=== PATIENT | female | born 1975 | race Caucasian/White ===

== ENCOUNTER 2019-11-24 13:11 | Emergency (ER) | payer OTHER ==
[~2019-11-24] VITALS: Ht 165.1 cm; Wt 97.5 kg
[~2019-11-24 13:11] MED LIST: CIPROFLOXACIN500 M1 PO; DOXYCYCLINE 10100 M1 PO; FLOMAX PO; GLUCOPHAGE500 MG PO; NOHOMEMEDICATIONS; NORCO 5-325 TA1 EACH PO; PERCOCET 5-3251 EACH PO; PROTONIX40 M2 PO
[2019-11-24 14:09] LABS: ABSOLUTE BASOPHILS 0.1 thou/uL (0.0-0.2); ABSOLUTE EOSINOPHILS 0.3 thou/uL (0.0-0.7); ABSOLUTE LYMPHOCYTES 1.7 thou/uL (0.8-5.3); ABSOLUTE MONOCYTES 0.6 thou/uL (0.0-1.2); ABSOLUTE NEUTROPHILS 6.8 thou/uL (1.6-8.1); BASOPHILS 0.7 %; EOSINOPHILS 3.4 %; HEMATOCRIT 45.5 % (37.0-47.0); LYMPHOCYTES 17.7 %; MCHC 35.2 g/dL (28.0-37.0); MCV 88.2 fL (80.0-100.0); MONOCYTES 6.3 %; MPV 9.2 fl. (7.2-11.1); NUCLEATED RBCS 0 /100WBC; PLATELET COUNT* 217 thou/uL (150-400); POLYS 71.9 %; RBC 5.16 mil/uL (4.20-5.00); RDW-CV 13.9 % (10.5-14.5); WBC 9.4 thou/uL (4.0-11.0)
[2019-11-24 14:18] LABS: CALCIUM 8.5 mg/dL (8.5-10.1); CREATININE 0.8 mg/dL (0.6-1.3)
[2019-11-24 14:23] LABS: ALBUMIN 3.2 g/dL (3.4-5.0); TOTAL BILIRUBIN 0.4 mg/dL (<0.1-1.0); TOTAL PROTEIN 7.3 g/dL (6.4-8.2)
[2019-11-24 14:56] LABS: URINE BILIRUBIN NEGATIVE (Negative); URINE BLOOD NEGATIVE (Negative); URINE CLARITY CLEAR; URINE COLOR YELLOW; URINE GLUCOSE-RANDOM 3+ (Negative); URINE KETONES NEGATIVE (Negative); URINE LEUKOCYTES-REFLEX NEGATIVE (Negative); URINE NITRITE-REFLEX NEGATIVE (Negative); URINE PROTEIN NEGATIVE (Negative); URINE SPECIFIC GRAVITY <= 1.005 (1.005-1.030); URINE UROBILINOGEN 0.2 E.U./dl (0.2-1.0)
[2019-11-24] MEDS ORDERED: KEFLEX500 M1 PO (15:27)
[2019-11-24 15:50] VITALS: BP 162/96
[2019-11-24 16:17] LABS: INFLUENZA A ANTIGEN Negative (Negative); INFLUENZA B ANTIGEN Negative (Negative)
== END 2019-11-24 15:50 | disposition home or self-care (01) ==
LOC: M.ERS 13:11
PROVIDERS: Physician Assistant
DX: R22.1 Localized swelling, mass and lump, neck (principal); E11.9 Type 2 diabetes mellitus without complications; Z90.49 Acquired absence of other specified parts of digestive tract; Z90.89 Acquired absence of other organs; Z98.890 Other specified postprocedural states

== ENCOUNTER 2020-03-25 15:22 | Emergency (ER) | payer OTHER ==
[~2020-03-25] VITALS: Ht 165.1 cm; Wt 97.5 kg
[~2020-03-25 15:22] MED LIST changes: +KEFLEX500 M1 PO
[2020-03-25] MEDS ORDERED: ZANAFLEX4 MG PO (18:43)
[2020-03-25] MEDS ORDERED: NABUMETONE 750750 M1 PO (18:43)
[2020-03-25] MEDS ORDERED: NORCO 5-325 TA1 EAC1 PO (18:43)
[2020-03-25 18:54] VITALS: BP 135/88
== END 2020-03-25 18:56 | disposition home or self-care (01) ==
LOC: M.ERS 15:22
DX: S16.1XXA Strain of muscle, fascia and tendon at neck level, initial encounter (principal); E11.9 Type 2 diabetes mellitus without complications; K58.9 Irritable bowel syndrome, unspecified; Z98.890 Other specified postprocedural states; Z90.49 Acquired absence of other specified parts of digestive tract; X58.XXXA Exposure to other specified factors, initial encounter; Y93.89 Activity, other specified; Y92.89 Other specified places as the place of occurrence of the external cause; Y99.8 Other external cause status

== ENCOUNTER 2020-12-12 12:22 | Emergency (ER) | payer OTHER ==
[~2020-12-12] VITALS: Ht 167.6 cm; Wt 102.1 kg
[~2020-12-12 12:22] MED LIST changes: +NABUMETONE 750750 M1 PO; +NORCO 5-325 TA1 EAC1 PO; +ZANAFLEX4 MG PO
[2020-12-12] MEDS ORDERED: IBUPROFEN 800800 M1 PO (14:12)
[2020-12-12 14:24] VITALS: BP 178/96
== END 2020-12-12 14:25 | disposition home or self-care (01) ==
LOC: M.ERS 12:22
DX: S63.591A Other specified sprain of right wrist, initial encounter (principal); K58.9 Irritable bowel syndrome, unspecified; E11.9 Type 2 diabetes mellitus without complications; Z98.890 Other specified postprocedural states; Z90.49 Acquired absence of other specified parts of digestive tract; W18.39XA Other fall on same level, initial encounter; Y93.89 Activity, other specified; Y92.89 Other specified places as the place of occurrence of the external cause; Y99.8 Other external cause status

== ENCOUNTER 2021-01-17 21:33 | Emergency (ER) | payer BC ==
[~2021-01-17] VITALS: Ht 165.1 cm; Wt 102.1 kg
[~2021-01-17 21:33] MED LIST changes: +IBUPROFEN 800800 M1 PO
[2021-01-17] MEDS ORDERED: AMOXICILLIN 50500 M1 PO (22:11)
[2021-01-17] MEDS ORDERED: HYDROCODON-ACE1 EAC8 PO (22:11)
[2021-01-17 22:34] VITALS: BP 182/100
== END 2021-01-17 22:35 | disposition home or self-care (01) ==
LOC: M.ERS 21:33
DX: K02.9 Dental caries, unspecified (principal); E11.9 Type 2 diabetes mellitus without complications; K58.9 Irritable bowel syndrome, unspecified; Z98.890 Other specified postprocedural states; Z90.49 Acquired absence of other specified parts of digestive tract

== ENCOUNTER 2021-08-19 17:53 | Emergency (ER) | payer OTHER ==
[~2021-08-19] VITALS: Ht 165.1 cm; Wt 102.1 kg
[~2021-08-19 17:53] MED LIST changes: +AMOXICILLIN 50500 M1 PO; +HYDROCODON-ACE1 EAC8 PO
[2021-08-19] MEDS ORDERED: MOXIFLOXACIN3 ML OPHTHALMIC (18:31)
[2021-08-19 18:46] VITALS: BP 156/117
== END 2021-08-19 18:46 | disposition home or self-care (01) ==
LOC: M.ERS 17:53
DX: S05.02XA Injury of conjunctiva and corneal abrasion without foreign body, left eye, initial encounter (principal); E11.9 Type 2 diabetes mellitus without complications; Z90.89 Acquired absence of other organs; Z90.49 Acquired absence of other specified parts of digestive tract; X58.XXXA Exposure to other specified factors, initial encounter; Y93.89 Activity, other specified; Y92.89 Other specified places as the place of occurrence of the external cause; Y99.8 Other external cause status

== ENCOUNTER 2021-11-28 07:50 | Emergency (ER) | payer OTHER ==
[~2021-11-28] VITALS: Ht 165.1 cm; Wt 102.1 kg
[~2021-11-28 07:50] MED LIST changes: +MOXIFLOXACIN3 ML OPHTHALMIC
[2021-11-28 08:56] LABS: URINE BILIRUBIN NEGATIVE (Negative); URINE BLOOD NEGATIVE (Negative); URINE CLARITY CLEAR; URINE COLOR YELLOW; URINE GLUCOSE-RANDOM 3+ (Negative); URINE KETONES TRACE (Negative); URINE LEUKOCYTES-REFLEX NEGATIVE (Negative); URINE NITRITE-REFLEX NEGATIVE (Negative); URINE PROTEIN NEGATIVE (Negative); URINE UROBILINOGEN 0.2 E.U./dl (0.2-1.0)
[2021-11-28] MEDS ORDERED: ACYCLOVIR 400400 MG PO (09:49)
[2021-11-28] MEDS ORDERED: DIFLUCAN150 M1 PO (10:42)
[2021-11-28 10:48] VITALS: BP 177/97
== END 2021-11-28 10:49 | disposition home or self-care (01) ==
LOC: M.ERS 07:50
PROVIDERS: Family Medicine
DX: A60.00 Herpesviral infection of urogenital system, unspecified (principal); N76.0 Acute vaginitis; E11.9 Type 2 diabetes mellitus without complications; Z98.890 Other specified postprocedural states; Z90.49 Acquired absence of other specified parts of digestive tract